=== PATIENT | female | born 1935 | race Caucasian/White ===

== ENCOUNTER 2018-05-22 07:14 | Inpatient (IN) | payer MEDICARE ==
[2018-05-22] MEDS ORDERED: SODIUM CHLORIDE 0.9% 1,000 ML IV STA (07:27)
[2018-05-22] MEDS ORDERED: ONDANSETRON 4 MG/2 ML VIAL IVP STA (07:27)
[2018-05-22] MEDS ORDERED: PANTOPRAZOLE 40 MG/10 ML VIAL IVP STA (07:27)
[2018-05-22 07:43] LABS: Basophils % (A) 0 %; Eosinophils # (A) 0.1 k/uL (0-0.7); Eosinophils % (A) 2 %; HCT 46.3 % (34.0-46.0); HGB 15.5 gm/dL (11.4-16.0); Lymphocytes # (A) 2.1 k/uL (1.0-4.8); Lymphocytes % (A) 22 %; MCH 32.4 pg (25.0-35.0); MCHC 33.5 g/dL (31.0-37.0); MCV 96.8 fL (80.0-100.0); Mean Platelet Volume 7.4; Monocytes # (A) 0.2 k/uL (0-1.0); Monocytes % (A) 2 %; Neutrophils # (A) 7.1 k/uL (1.3-7.7); Neutrophils % (A) 74 %; Platelet Count 238 k/uL (150-450); RBC 4.78 m/uL (3.80-5.40); RDW 13.6 % (11.5-15.5); WBC 9.6 k/uL (3.8-10.6)
[2018-05-22 08:00] LABS: Albumin 3.9 g/dL (3.5-5.0); Calcium 8.7 mg/dL (8.4-10.2); Total Bilirubin 1.1 mg/dL (0.2-1.3); Total Protein 6.2 g/dL (6.3-8.2)
[2018-05-22 08:01] LABS: Potassium 5.2 mmol/L (3.5-5.1)
[2018-05-22 08:03] LABS: INR 1.1 (<1.2); Prothrombin Time 10.8 sec (9.0-12.0)
[2018-05-22 08:07] LABS: Partial Thromboplastin Time 21.6 sec (22.0-30.0)
[2018-05-22 08:34] LABS: Troponin I 0.044 ng/mL (0.000-0.034)
--- NOTE | 2018-05-22 08:52 | XR ---
EXAMINATION TYPE: XR abdomen acute w cxr DATE OF EXAM: 05/22/2018 COMPARISON: NONE HISTORY: Pain TECHNIQUE: Single view of the chest and 2 views of the abdomen are submitted. FINDINGS: Single view of the chest fails demonstrate evidence for acute pulmonary disease. Scattered senescent parenchymal changes noted. There is no evidence for pneumoperitoneum. The bowel gas pattern is unremarkable as there is air throughout nondilated small and large bowel. No sizeable air fluid levels.No mass effects are seen. No unusual calcifications. IMPRESSION: 1. Unremarkable study.
--- NOTE | 2018-05-22 09:10 | ED ---
General Adult HPI - General Chief complaint: Abdominal Pain Stated complaint: ABd Pain Time Seen by Provider: 05/22/18 07:26 Source: patient, EMS, RN notes reviewed, old records reviewed Mode of arrival: EMS Limitations: physical limitation - History of Present Illness Initial comments: This is an 83-year-old female to the ER for evaluation of abdominal pain. Left lower Quadrant. Periumbilical abdominal pain as well as nausea, no vomiting. Patient admits to blood in stool. Patient states she does have history of diverticulitis symptoms were very similar. She has had bowel surgery before, not had this hospital. No fevers - Related Data Home Medications Medication Instructions Recorded Confirmed Aspirin 81 mg PO DAILY 04/15/15 05/22/18 Nitroglycerin Sl Tabs [Nitrostat] 0.4 mg SUBLINGUAL Q5M PRN 04/15/15 05/22/18 amLODIPine BESYLATE [Amlodipine 5 mg PO DAILY 04/15/15 05/22/18 Besylate] Pravastatin Sodium [Pravachol] 40 mg PO DAILY 05/29/15 05/22/18 Cyanocobalamin (Vitamin B-12) 1,000 mcg PO DAILY 05/22/18 05/22/18 [Vitamin B-12] Famotidine [Pepcid] 40 mg PO W/SUPPER 05/22/18 05/22/18 Losartan Potassium 25 mg PO DAILY 05/22/18 05/22/18 Metoprolol Tartrate [Lopressor] 50 mg PO BID 05/22/18 05/22/18 [place]-3 Fatty Acids [[place]-3] 1,000 mg PO DAILY 05/22/18 05/22/18 Vit C/E/Zn/Coppr/Lutein/Zeaxan 1 cap PO BID 05/22/18 05/22/18 [Preservision Areds 2 Softgel] Previous Rx's Medication Instructions Recorded Acetaminophen Tab [Tylenol] 650 mg PO Q6HR PRN #0 tab 04/17/15 FLUoxetine HCL [PROzac] 10 mg PO DAILY cap 04/17/15 Allergies Allergy/AdvReac Type Severity Reaction Status Date / Time adhesive Allergy SKIN Verified 05/29/15 21:12 IRRITATION alcohol Allergy IRREGULAR Verified 05/29/15 21:12 HEART RATE Iodinated Contrast- Oral and Allergy Rash/Hives Verified 05/29/15 21:12 IV Dye [Iodinated Contrast Media - IV Dye] Review of Systems ROS Statement: Those systems with pertinent positive or pertinent negative responses have been documented in the HPI. ROS Other: All systems not noted in ROS Statement are negative. Past Medical History Past Medical History: Atrial Fibrillation, GERD/Reflux, Osteoarthritis (OA), Sleep Apnea/CPAP/BIPAP Additional Past Medical History / Comment(s): Pacemaker defibrillator History of Any Multi-Drug Resistant Organisms: None Reported Past Surgical History: Appendectomy, Bowel Resection, Cholecystectomy, Coronary Bypass/CABG, Heart Catheterization, Hysterectomy, Joint Replacement, Orthopedic Surgery Additional Past Surgical History / Comment(s): CABG-2 VESSEL,THUMB SURGERY,RT HEEL SURGERY,BOWEL RESECTION DUE TO RUPTURED BOWEL,PARTIAL RT KNEE REPLACEMENT, RT SHOULDER REPLACEMENT,OLEG CATARACT SURG.,NASAL SURGERY,BLADDER AND RECTAL SUSP , HEMORRHOIDECTOMIES X2 Past Anesthesia/Blood Transfusion Reactions: Motion Sickness Additional Past Anesthesia/Blood Transfusion Reaction / Comment(s): VERTIGO Past Psychological History: Anxiety Smoking Status: Never smoker Past Alcohol Use History: None Reported Past Drug Use History: None Reported - Past Family History Father Family Medical History: Cancer Additional Family Medical History / Comment(s): COLON Mother Additional Family Medical History / Comment(s): HEART CONDITION General Exam Limitations: physical limitation General appearance: alert, in no apparent distress Head exam: Present: atraumatic, normocephalic, normal inspection Eye exam: Present: normal appearance, PERRL, EOMI. Absent: scleral icterus, conjunctival injection, periorbital swelling ENT exam: Present: normal exam, mucous membranes moist Neck exam: Present: normal inspection. Absent: tenderness, meningismus, lymphadenopathy Respiratory exam: Present: normal lung sounds bilaterally. Absent: respiratory distress, wheezes, rales, rhonchi, stridor Cardiovascular Exam: Present: regular rate, normal rhythm, normal heart sounds. Absent: systolic murmur, diastolic murmur, rubs, gallop, clicks GI/Abdominal exam: Present: soft, normal bowel sounds. Absent: distended, tenderness, guarding, rebound, rigid Extremities exam: Present: normal inspection, full ROM, normal capillary refill. Absent: tenderness, pedal edema, joint swelling, calf tenderness Back exam: Present: normal inspection Neurological exam: Present: alert, oriented X3, CN II-XII intact Psychiatric exam: Present: normal affect, normal mood Skin exam: Present: warm, dry, intact, normal color. Absent: rash Course Vital Signs 05/22/18 05/22/18 05/22/18 07:19 09:01 10:10 Temperature 96.9 F L Pulse Rate 69 60 64 Respiratory 18 18 18 Rate Blood Pressure 138/64 145/63 136/64 O2 Sat by Pulse 96 98 97 Oximetry Medical Decision Making - Medical Decision Making 83 female w colitis, diarrhea, abd pain, and GI bleed, will admit for NPO monitoring of Hgb and IVF - Lab Data Result diagrams: 05/22/18 07:25 05/22/18 07:25 Lab Results 05/22/18 05/22/18 05/22/18 Range/Units 07:25 07:25 07:25 WBC 9.6 (3.8-10.6) k/uL RBC 4.78 (3.80-5.40) m/uL Hgb 15.5 (11.4-16.0) gm/dL Hct 46.3 H (34.0-46.0) % MCV 96.8 (80.0-100.0) fL MCH 32.4 (25.0-35.0) pg MCHC 33.5 (31.0-37.0) g/dL RDW 13.6 (11.5-15.5) % Plt Count 238 (150-450) k/uL Neutrophils % 74 % Lymphocytes % 22 % Monocytes % 2 % Eosinophils % 2 % Basophils % 0 % Neutrophils # 7.1 (1.3-7.7) k/uL Lymphocytes # 2.1 (1.0-4.8) k/uL Monocytes # 0.2 (0-1.0) k/uL Eosinophils # 0.1 (0-0.7) k/uL Basophils # 0.0 (0-0.2) k/uL PT (9.0-12.0) sec INR (<1.2) APTT (22.0-30.0) sec Sodium 138 (137-145) mmol/L Potassium 5.2 H (3.5-5.1) mmol/L Chloride 109 H (98-107) mmol/L Carbon Dioxide 20 L (22-30) mmol/L Anion Gap 9 mmol/L BUN 27 H (7-17) mg/dL Creatinine 0.79 (0.52-1.04) mg/dL Est GFR (CKD-EPI)AfAm 81 (>60 ml/min/1.73 sqM) Est GFR (CKD-EPI)NonAf 70 (>60 ml/min/1.73 sqM) Glucose 207 H (74-99) mg/dL Lactic Ac Sepsis Rflx Plasma Lactic Acid Wang (0.7-2.0) mmol/L Calcium 8.7 (8.4-10.2) mg/dL Total Bilirubin 1.1 (0.2-1.3) mg/dL AST 42 H (14-36) U/L ALT 18 (9-52) U/L Alkaline Phosphatase 34 L (38-126) U/L Total Creatine Kinase 62 (30-135) U/L CK-MB (CK-2) 1.0 (0.0-2.4) ng/mL CK-MB (CK-2) Rel Index 1.6 Troponin I 0.044 H* (0.000-0.034) ng/mL Total Protein 6.2 L (6.3-8.2) g/dL Albumin 3.9 (3.5-5.0) g/dL Amylase 82 (30-110) U/L Lipase 256 (23-300) U/L C. difficile (EIA) Intrp (Negative) 05/22/18 05/22/18 05/22/18 Range/Units 07:25 07:25 08:04 WBC (3.8-10.6) k/uL RBC (3.80-5.40) m/uL Hgb (11.4-16.0) gm/dL Hct (34.0-46.0) % MCV (80.0-100.0) fL MCH (25.0-35.0) pg MCHC (31.0-37.0) g/dL RDW (11.5-15.5) % Plt Count (150-450) k/uL Neutrophils % % Lymphocytes % % Monocytes % % Eosinophils % % Basophils % % Neutrophils # (1.3-7.7) k/uL Lymphocytes # (1.0-4.8) k/uL Monocytes # (0-1.0) k/uL Eosinophils # (0-0.7) k/uL Basophils # (0-0.2) k/uL PT 10.8 (9.0-12.0) sec INR 1.1 (<1.2) APTT 21.6 L (22.0-30.0) sec Sodium (137-145) mmol/L Potassium (3.5-5.1) mmol/L Chloride (98-107) mmol/L Carbon Dioxide (22-30) mmol/L Anion Gap mmol/L BUN (7-17) mg/dL Creatinine (0.52-1.04) mg/dL Est GFR (CKD-EPI)AfAm (>60 ml/min/1.73 sqM) Est GFR (CKD-EPI)NonAf (>60 ml/min/1.73 sqM) Glucose (74-99) mg/dL Lactic Ac Sepsis Rflx Y Plasma Lactic Acid Wang 2.7 H* (0.7-2.0) mmol/L Calcium (8.4-10.2) mg/dL Total Bilirubin (0.2-1.3) mg/dL AST (14-36) U/L ALT (9-52) U/L Alkaline Phosphatase (38-126) U/L Total Creatine Kinase (30-135) U/L CK-MB (CK-2) (0.0-2.4) ng/mL CK-MB (CK-2) Rel Index Troponin I (0.000-0.034) ng/mL Total Protein (6.3-8.2) g/dL Albumin (3.5-5.0) g/dL Amylase (30-110) U/L Lipase (23-300) U/L C. difficile (EIA) Intrp (Negative) 05/22/18 05/22/18 Range/Units 09:46 12:25 WBC (3.8-10.6) k/uL RBC (3.80-5.40) m/uL Hgb (11.4-16.0) gm/dL Hct (34.0-46.0) % MCV (80.0-100.0) fL MCH (25.0-35.0) pg MCHC (31.0-37.0) g/dL RDW (11.5-15.5) % Plt Count (150-450) k/uL Neutrophils % % Lymphocytes % % Monocytes % % Eosinophils % % Basophils % % Neutrophils # (1.3-7.7) k/uL Lymphocytes # (1.0-4.8) k/uL Monocytes # (0-1.0) k/uL Eosinophils # (0-0.7) k/uL Basophils # (0-0.2) k/uL PT (9.0-12.0) sec INR (<1.2) APTT (22.0-30.0) sec Sodium (137-145) mmol/L Potassium (3.5-5.1) mmol/L Chloride (98-107) mmol/L Carbon Dioxide (22-30) mmol/L Anion Gap mmol/L BUN (7-17) mg/dL Creatinine (0.52-1.04) mg/dL Est GFR (CKD-EPI)AfAm (>60 ml/min/1.73 sqM) Est GFR (CKD-EPI)NonAf (>60 ml/min/1.73 sqM) Glucose (74-99) mg/dL Lactic Ac Sepsis Rflx Plasma Lactic Acid Wang 2.4 H* (0.7-2.0) mmol/L Calcium (8.4-10.2) mg/dL Total Bilirubin (0.2-1.3) mg/dL AST (14-36) U/L ALT (9-52) U/L Alkaline Phosphatase (38-126) U/L Total Creatine Kinase (30-135) U/L CK-MB (CK-2) (0.0-2.4) ng/mL CK-MB (CK-2) Rel Index Troponin I (0.000-0.034) ng/mL Total Protein (6.3-8.2) g/dL Albumin (3.5-5.0) g/dL Amylase (30-110) U/L Lipase (23-300) U/L C. difficile (EIA) Intrp Negative (Negative) - Radiology Data Radiology results: report reviewed (CT abd pelvis positive for colitis), image reviewed Disposition Clinical Impression: Abdominal pain, Colitis, GI bleed Disposition: ADMITTED IP TO THIS [facility] Condition: Good Referrals: Rosalino Melgar MD [Primary Care Provider] - 1-2 days
[2018-05-22] MEDS ORDERED: methylPREDNISolone SOD SUCCI 125 MG/2 ML VIAL IV STA (09:45)
[2018-05-22] MEDS ORDERED: FAMOTIDINE 20 MG/2 ML VIAL IV STA (09:45)
[2018-05-22] MEDS ORDERED: diphenhydrAMINE 50 MG/ML 1 ML VIAL IVP STA (09:45)
--- NOTE | 2018-05-22 10:55 | CT ---
EXAMINATION TYPE: CT abdomen pelvis w con DATE OF EXAM: 05/22/2018 HISTORY: Pelvic pain with diarrhea and vomiting CT DLP: 1433.9mGycm Automated Exposure Control for Dose Reduction was Utilized. CONTRAST: CT scan of the abdomen and pelvis is performed without oral but with IV Contrast, patient injected wi th 100 mL of Isovue 370. COMPARISON: Chest x-ray with acute abdominal series earlier today FINDINGS: LUNG BASES: Cardiomegaly is present. Sternal wires are partially imaged. There is partial visualizati on of right-sided pacemaker/defibrillator wires. There is peripheral pleural thickening or atelectati c change laterally in the right lung base. There are some scattered linear scarring and/or atelectasi s seen bilaterally. LIVER/GB: Cholecystectomy clips are seen. PANCREAS: No significant abnormality is seen. SPLEEN: No significant abnormality is seen. ADRENALS: No significant abnormality is seen. KIDNEYS: There is subcentimeter fat dense lesion medially posteriorly lower pole level left kidney co jr image 62 could reflect small lipoma or angiomyolipoma. There is symmetric cortical medullary up take and excretion from both kidneys without evidence of hydronephrosis seen bilaterally. Bladder is poorly distended and thus suboptimally evaluated. BOWEL: Evaluation bowel is suboptimal secondary to lack of enteric contrast. There is poorly distende d stomach which is thus suboptimally evaluated. There is no suspicious dilatation of duodenal sweep. There is no suspicious small bowel dilatation. There is fluid in the right colon. There is moderate wall thickening in the transverse colon. There i s more mild wall thickening and mucosal enhancement of the left colon. There are surgical sutures juana t are seen in the mid sigmoid colon. There is fluid noted in the mid sigmoid colon at this level. The re is mild to moderate wall thickening of the distal sigmoid colon and rectum. UTERUS/ADNEXA: Uterus is surgically absent or markedly atrophic. Scattered pelvic phleboliths are see n. LYMPH NODES: No greater than 1cm abdominal or pelvic lymph nodes are appreciated. OSSEOUS STRUCTURES: There is grade 1 anterolisthesis of L4 on L5. There is vacuum disc phenomenon L4- L5 level with mild disc space narrowing. There is moderate to advanced disc space narrowing L5-S1 lev el with posterior calcified disc herniation and facet arthropathy. Moderate axial joint space loss in both hips is present. OTHER: There is moderate to severe calcified plaque of aorta extending into branch vessels. There is small to moderate-sized umbilical hernia containing fat and tiny mesenteric vessels axial image 54 IMPRESSION: No bowel obstruction is seen. Fluid in colon is consistent with patient's history of diar osmar. Areas of abnormal wall thickening or suspicious for a multifocal colitis, consider infectious a nd inflammatory etiologies.
[2018-05-22] MEDS ORDERED: SODIUM CHLORIDE 0.9% 1,000 ML IV ONE (12:56)
[2018-05-22] MEDS ORDERED: ONDANSETRON 4 MG/2 ML VIAL IVP PRN (12:57)
[2018-05-22] MEDS ORDERED: DICYCLOMINE 10 MG/ML 2 ML AMP IM STA (12:57)
[2018-05-22] MEDS ORDERED: MORPHINE SULFATE 4 MG/ML SYRINGE IVP STA (12:57)
[2018-05-22] MEDS ORDERED: MORPHINE SULFATE 4 MG/ML SYRINGE IVP PRN (12:57)
[2018-05-22 17:16] LABS: Basophils % (A) 0 %; Eosinophils % (A) 0 %; HGB 14.4 gm/dL (11.4-16.0); Lymphocytes # (A) 0.6 k/uL (1.0-4.8); Lymphocytes % (A) 4 %; MCH 31.3 pg (25.0-35.0); MCHC 33.5 g/dL (31.0-37.0); MCV 93.4 fL (80.0-100.0); Mean Platelet Volume 7.1; Monocytes # (A) 0.3 k/uL (0-1.0); Monocytes % (A) 2 %; Neutrophils # (A) 13.7 k/uL (1.3-7.7); Neutrophils % (A) 94 %; Platelet Count 202 k/uL (150-450); RDW 13.2 % (11.5-15.5); WBC 14.6 k/uL (3.8-10.6)
[2018-05-22] MEDS ORDERED: METOCLOPRAMIDE 5 MG/ML 2 ML VIAL IVP SCH (18:00)
[2018-05-22] MEDS ORDERED: NITROGLYCERIN SL TABS 0.4 MG TAB SUBLINGUAL PRN (20:19)
[2018-05-22] MEDS ORDERED: ACETAMINOPHEN TAB 325 MG TAB PO PRN (20:19)
[2018-05-22] MEDS ORDERED: METOCLOPRAMIDE 5 MG/ML 2 ML VIAL IVP PRN (20:24)
[2018-05-22] MEDS: METOPROLOL TARTRATE 50 MG TAB PO SCH (21:03)
[2018-05-22] MEDS: PANTOPRAZOLE 40 MG/10 ML VIAL IVP SCH (21:04)
[2018-05-22 22:15] LABS: Basophils % (A) 0 %; Eosinophils % (A) 0 %; HCT 42.6 % (34.0-46.0); HGB 14.3 gm/dL (11.4-16.0); Lymphocytes # (A) 0.7 k/uL (1.0-4.8); Lymphocytes % (A) 5 %; MCHC 33.5 g/dL (31.0-37.0); MCV 95.6 fL (80.0-100.0); Mean Platelet Volume 6.6; Monocytes # (A) 0.2 k/uL (0-1.0); Monocytes % (A) 1 %; Neutrophils # (A) 12.5 k/uL (1.3-7.7); Neutrophils % (A) 93 %; Platelet Count 209 k/uL (150-450); RBC 4.46 m/uL (3.80-5.40); RDW 13.7 % (11.5-15.5); WBC 13.5 k/uL (3.8-10.6)
--- NOTE | 2018-05-22 23:48 | HP ---
HISTORY AND PHYSICAL CHIEF COMPLAINT: An 83-year-old white female with abdominal pain. HISTORY OF PRESENT ILLNESS: An 83-year-old white female came into the ER for abdominal pain, left lower quadrant, periumbilical abdominal pain, nausea, no vomiting, a large amount of blood in stool this afternoon. She has a history of diverticulitis. She had a colonoscopy 2-3 years ago which apparently showed no masses or polyps. HOME MEDICATIONS: 1. Losartan 25 mg a day. 2. Pravachol 40 mg daily. 3. Pepcid 40 mg daily. 4. Aspirin 81 mg daily. 5. Amlodipine 5 mg daily. 6. Metoprolol 50 mg b.i.d. 7. [place]-3 fatty acids daily. ALLERGIES: ADHESIVE. ALCOHOL, IODINE DYE. REVIEW OF SYSTEMS: Fourteen-point review of systems negative except for mentioned in HPI. PAST MEDICAL HISTORY: Atrial fibrillation, GERD, osteoarthritis, sleep apnea, diverticulitis, has a pacemaker defibrillator surgery, appendectomy, bowel resection, cholecystectomy, CABG, heart catheterization, hysterectomy, joint replacement orthopedic surgery, CABG 2 vessel, thumb surgery, right heel surgery, bowel resection due to a ruptured bowel, partial right knee replacement, right shoulder replacement, bilateral cataract surgery, nasal surgery, bilateral replacement, hemorrhoidectomies x2. SOCIAL HISTORY: No smoking. No alcohol. No illicit drugs. FAMILY HISTORY: Father with cancer of the colon. Mother with heart condition. PHYSICAL EXAM: VITAL SIGNS: Stable, afebrile. CARDIOVASCULAR: S1, S2. LUNGS: Clear. GI: Soft, increased bowel sounds. No mass. PSYCH: Fair mood and affect. NEUROLOGIC: Alert and oriented x3. OPHTHALMOLOGICAL: Pupils equal, round, react to light and accommodation. PSYCH: Fair mood and affect. NEUROLOGIC: Alert and oriented x3. VASCULAR: Normal dorsalis pedis, posterior tib, radial pulses. Temp 96.9, pulse 60- 69, respiratory rate 16-18 blood pressure is 130s-140s over 60s-70s, O2 96%-97% on room air. White count is 9.6, hemoglobin is 15.5. Sodium 138, potassium 5.2, creatinine 0.79. C. diff. is negative. Lactic acid 2.4. ASSESSMENT: 1. Abdominal pain, colitis, gastrointestinal bleed. 2. History of hypothyroidism. 3. Coronary artery disease. 4. Hypertension. 5. Acute abdominal pain. Please see further surgical consult. Monitor signs of bleeding. Possible colonoscopy. Check stool culture. Fluid bolus for elevated lactic acidosis. MMODL / IJN: [id number] /
[2018-05-23] MEDS: SODIUM CHLORIDE 0.9% 1,000 ML IV SCH ×2 (01:26→20:10)
[2018-05-23 03:55] LABS: Appearance,Urine Clear (Clear); Bilirubin,Urine Negative (Negative); Blood,Urine Negative (Negative); Color,Urine Yellow; Glucose,Urine (UA) Negative (Negative); Ketones,Urine Negative (Negative); Leukocyte Esterase,Urine Negative (Negative); Mucus,Urine Rare /hpf; Nitrite,Urine Negative (Negative); PH, Urine 5.5 (5.0-8.0); Protein,Urine 1+ (Negative); RBC,Urine 1 /hpf (0-5); Specific Gravity,Urine 1.032 (1.001-1.035); Squamous Epithelial Cell,Urine 1 /hpf (0-4); Urobilinogen,Urine <2.0 mg/dL (<2.0); WBC,Urine 3 /hpf (0-5)
[2018-05-23 03:57] LABS: Basophils % (A) 0 %; Eosinophils # (A) 0.1 k/uL (0-0.7); Eosinophils % (A) 1 %; HCT 39.2 % (34.0-46.0); HGB 12.8 gm/dL (11.4-16.0); Lymphocytes # (A) 0.6 k/uL (1.0-4.8); Lymphocytes % (A) 5 %; MCH 30.9 pg (25.0-35.0); MCHC 32.6 g/dL (31.0-37.0); MCV 94.9 fL (80.0-100.0); Mean Platelet Volume 6.7; Monocytes # (A) 0.4 k/uL (0-1.0); Monocytes % (A) 3 %; Neutrophils # (A) 11.4 k/uL (1.3-7.7); Neutrophils % (A) 91 %; Platelet Count 197 k/uL (150-450); RBC 4.13 m/uL (3.80-5.40); RDW 13.7 % (11.5-15.5); WBC 12.5 k/uL (3.8-10.6)
[2018-05-23 03:59] LABS: ALT 31 U/L (9-52); AST 24 U/L (14-36); Albumin 3.7 g/dL (3.5-5.0); Alkaline Phosphatase 44 U/L (38-126); Anion Gap 9 mmol/L; Blood Urea Nitrogen 23 mg/dL (7-17); Calcium 8.7 mg/dL (8.4-10.2); Carbon Dioxide 19 mmol/L (22-30); Chloride 112 mmol/L (98-107); Glucose 153 mg/dL (74-99); Potassium 4.2 mmol/L (3.5-5.1); Sodium 140 mmol/L (137-145); Total Bilirubin 0.5 mg/dL (0.2-1.3); Total Protein 5.9 g/dL (6.3-8.2)
[2018-05-23] MEDS: PANTOPRAZOLE 40 MG/10 ML VIAL IVP SCH ×2 (07:55→20:11)
[2018-05-23] MEDS: PRAVASTATIN SODIUM 40 MG TAB PO SCH (07:55)
[2018-05-23] MEDS: CYANOCOBALAMIN 500 MCG TAB PO SCH (07:55)
[2018-05-23] MEDS: FLUoxetine HCL 10 MG CAP PO SCH (07:56)
[2018-05-23] MEDS: METOPROLOL TARTRATE 50 MG TAB PO SCH ×2 (07:56→20:10)
[2018-05-23] MEDS: amLODIPine 5 MG TAB PO SCH (07:56)
[2018-05-23] MEDS: LOSARTAN 25 MG TAB PO SCH (07:56)
[2018-05-23 09:00] LABS: Basophils % (A) 0 %; Eosinophils % (A) 0 %; HCT 37.9 % (34.0-46.0); HGB 12.6 gm/dL (11.4-16.0); Lymphocytes # (A) 0.8 k/uL (1.0-4.8); Lymphocytes % (A) 6 %; MCH 31.8 pg (25.0-35.0); MCHC 33.4 g/dL (31.0-37.0); MCV 95.4 fL (80.0-100.0); Mean Platelet Volume 6.8; Monocytes # (A) 0.5 k/uL (0-1.0); Monocytes % (A) 4 %; Neutrophils % (A) 90 %; Platelet Count 190 k/uL (150-450); RBC 3.97 m/uL (3.80-5.40); WBC 13.4 k/uL (3.8-10.6)
[2018-05-23] MEDS ORDERED: FAMOTIDINE 20 MG TAB PO SCH (17:30)
--- NOTE | 2018-05-23 19:20 | P.GSCN ---
History of Present Illness Consult date: 05/23/18 History of present illness: Patient presents with rectal bleeding that started yesterday. She reported generalized abdominal pain. Her last colonoscopy was 3 years ago in [place]. 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 No exposure to sick contacts or recent antibiotics. CT consistent with colitis. She reports intolerance to large volume bowel preps and is still relatively weak. Past Medical History Past Medical History: Atrial Fibrillation, GERD/Reflux, Hyperlipidemia, Hypertension, Osteoarthritis (OA), Pneumonia, Sleep Apnea/CPAP/BIPAP Additional Past Medical History / Comment(s): hx cardiomyopathy/bradycardia/chf had Pacemaker defibrillator implanted, kidneys stones(passed on own), past ulcer in her 40's. ton-no cpap used, vertigo, past ruptured bowel(sx), past broken nose/deviated spetum(sx) History of Any Multi-Drug Resistant Organisms: None Reported Past Surgical History: AICD, Appendectomy, Bowel Resection, Cholecystectomy, Coronary Bypass/CABG, Heart Catheterization, Hysterectomy, Joint Replacement, Orthopedic Surgery, Pacemaker Additional Past Surgical History / Comment(s): CABG-2 VESSEL,THUMB SURGERY,RT HEEL SPUR REMOVED,BOWEL RESECTION DUE TO RUPTURED BOWEL,PARTIAL RT KNEE REPLACEMENT,RT SHOULDER REPLACEMENT,OLEG CATARACT-LENS IMPLANTS, NASAL SURGERY, BLADDER AND RECTAL SUSP, HEMORRHOIDECTOMIES X2 Past Anesthesia/Blood Transfusion Reactions: Motion Sickness Additional Past Anesthesia/Blood Transfusion Reaction / Comm: VERTIGO, CLAUSTERPHOBIA. DIFFICULTY WAKING AFTER AA Type of Cardiac Device: Permanent Pacemaker, AICD Device Placement Date:: UNK Smoking Status: Never smoker - Past Family History Father Family Medical History: Cancer Additional Family Medical History / Comment(s): COLON Mother Additional Family Medical History / Comment(s): HEART CONDITION Medications and Allergies Home Medications Medication Instructions Recorded Confirmed Type Aspirin 81 mg PO DAILY 04/15/15 05/22/18 History Nitroglycerin Sl Tabs [Nitrostat] 0.4 mg SUBLINGUAL Q5M PRN 04/15/15 05/22/18 History amLODIPine BESYLATE [Amlodipine 5 mg PO DAILY 04/15/15 05/22/18 History Besylate] Acetaminophen Tab [Tylenol] 650 mg PO Q6HR PRN #0 tab 04/17/15 05/22/18 Rx FLUoxetine HCL [PROzac] 10 mg PO DAILY cap 04/17/15 05/22/18 Rx Pravastatin Sodium [Pravachol] 40 mg PO DAILY 05/29/15 05/22/18 History Cyanocobalamin (Vitamin B-12) 1,000 mcg PO DAILY 05/22/18 05/22/18 History [Vitamin B-12] Famotidine [Pepcid] 40 mg PO W/SUPPER 05/22/18 05/22/18 History Losartan Potassium 25 mg PO DAILY 05/22/18 05/22/18 History Metoprolol Tartrate [Lopressor] 50 mg PO BID 05/22/18 05/22/18 History [place]-3 Fatty Acids [[place]-3] 1,000 mg PO DAILY 05/22/18 05/22/18 History Vit C/E/Zn/Coppr/Lutein/Zeaxan 1 cap PO BID 05/22/18 05/22/18 History [Preservision Areds 2 Softgel] Allergies Allergy/AdvReac Type Severity Reaction Status Date / Time adhesive Allergy SKIN Verified 05/29/15 21:12 IRRITATION alcohol Allergy IRREGULAR Verified 05/29/15 21:12 HEART RATE Iodinated Contrast- Oral and Allergy Rash/Hives Verified 05/29/15 21:12 IV Dye [Iodinated Contrast Media - IV Dye] Surgical - Exam Vital Signs Temp Pulse Resp BP Pulse Ox 96.9 F L 69 18 138/64 96 05/22/18 07:19 05/22/18 07:19 05/22/18 07:19 05/22/18 07:19 05/22/18 07:19 ABDOMEN: No peritonitis. Mild generalized tenderness. Soft. Minimal distention. Results - Labs 05/23/18 08:19 05/23/18 03:34 Abnormal Lab Results - Last 24 Hours (Table) 05/22/18 05/22/18 05/23/18 Range/Units 21:15 22:04 03:34 WBC 13.5 H 12.5 H (3.8-10.6) k/uL Neutrophils # 12.5 H 11.4 H (1.3-7.7) k/uL Lymphocytes # 0.7 L 0.6 L (1.0-4.8) k/uL Chloride (98-107) mmol/L Carbon Dioxide (22-30) mmol/L BUN (7-17) mg/dL Glucose (74-99) mg/dL Total Protein (6.3-8.2) g/dL Urine Protein 1+ H (Negative) Urine Mucus Rare H (None) /hpf 05/23/18 05/23/18 Range/Units 03:34 08:19 WBC 13.4 H (3.8-10.6) k/uL Neutrophils # 12.0 H (1.3-7.7) k/uL Lymphocytes # 0.8 L (1.0-4.8) k/uL Chloride 112 H (98-107) mmol/L Carbon Dioxide 19 L (22-30) mmol/L BUN 23 H (7-17) mg/dL Glucose 153 H (74-99) mg/dL Total Protein 5.9 L (6.3-8.2) g/dL Urine Protein (Negative) Urine Mucus (None) /hpf Microbiology - Last 24 Hours (Table) 05/22/18 22:04 Urine Culture - Preliminary Urine,Voided Diabetes panel 05/23/18 Range/Units 03:34 Sodium 140 (137-145) mmol/L Potassium 4.2 (3.5-5.1) mmol/L Chloride 112 H (98-107) mmol/L Carbon Dioxide 19 L (22-30) mmol/L BUN 23 H (7-17) mg/dL Creatinine 0.60 (0.52-1.04) mg/dL Glucose 153 H (74-99) mg/dL Calcium 8.7 (8.4-10.2) mg/dL AST 24 (14-36) U/L ALT 31 (9-52) U/L Alkaline Phosphatase 44 (38-126) U/L Total Protein 5.9 L (6.3-8.2) g/dL Albumin 3.7 (3.5-5.0) g/dL Calcium panel 05/23/18 Range/Units 03:34 Calcium 8.7 (8.4-10.2) mg/dL Albumin 3.7 (3.5-5.0) g/dL Pituitary panel 05/23/18 Range/Units 03:34 Sodium 140 (137-145) mmol/L Potassium 4.2 (3.5-5.1) mmol/L Chloride 112 H (98-107) mmol/L Carbon Dioxide 19 L (22-30) mmol/L BUN 23 H (7-17) mg/dL Creatinine 0.60 (0.52-1.04) mg/dL Glucose 153 H (74-99) mg/dL Calcium 8.7 (8.4-10.2) mg/dL Adrenal panel 05/23/18 Range/Units 03:34 Sodium 140 (137-145) mmol/L Potassium 4.2 (3.5-5.1) mmol/L Chloride 112 H (98-107) mmol/L Carbon Dioxide 19 L (22-30) mmol/L BUN 23 H (7-17) mg/dL Creatinine 0.60 (0.52-1.04) mg/dL Glucose 153 H (74-99) mg/dL Calcium 8.7 (8.4-10.2) mg/dL Total Bilirubin 0.5 (0.2-1.3) mg/dL AST 24 (14-36) U/L ALT 31 (9-52) U/L Alkaline Phosphatase 44 (38-126) U/L Total Protein 5.9 L (6.3-8.2) g/dL Albumin 3.7 (3.5-5.0) g/dL - Imaging CT scan - abdomen: report reviewed, image reviewed CT scan - pelvis: report reviewed, image reviewed US - abdomen: image reviewed (Colitis without bowel obstruction or perforation.) Assessment and Plan (1) Colitis Current Visit: Yes Status: Acute Code(s): K52.9 - NONINFECTIVE GASTROENTERITIS AND COLITIS, UNSPECIFIED SNOMED Code(s): 51787883 (2) GI bleed Current Visit: Yes Status: Acute Code(s): K92.2 - GASTROINTESTINAL HEMORRHAGE, UNSPECIFIED SNOMED Code(s): 62732804 Plan: 1. Recommend treatment for ischemic colitis with her surgical history. 2. IV antibiotics for now. 3. As she is relatively weak and dehydrated, recommend holding off inpatient colonoscopy. Patient also reports intolerance to GI prep. 4. Low residue diet.
[2018-05-23 22:11] LABS: Basophils % (A) 0 %; Eosinophils # (A) 0.1 k/uL (0-0.7); Eosinophils % (A) 1 %; HCT 39.3 % (34.0-46.0); HGB 12.6 gm/dL (11.4-16.0); Lymphocytes # (A) 1.6 k/uL (1.0-4.8); Lymphocytes % (A) 11 %; MCH 30.8 pg (25.0-35.0); MCHC 32.1 g/dL (31.0-37.0); MCV 95.8 fL (80.0-100.0); Monocytes # (A) 0.8 k/uL (0-1.0); Monocytes % (A) 5 %; Neutrophils # (A) 12.2 k/uL (1.3-7.7); Neutrophils % (A) 82 %; Platelet Count 187 k/uL (150-450); RBC 4.11 m/uL (3.80-5.40); RDW 13.7 % (11.5-15.5)
--- NOTE | 2018-05-23 22:13 | PN ---
PROGRESS NOTE SUBJECTIVE: 83-year-old white female with colitis, GI bleeding, hypertension, GERD. LABS: Hemoglobin dropped down to 12.6 from 14.4. She has had no active bleeding overnight. Cardiovascular S1-S2. Lungs clear. GI is decreased bowel sounds x4. Hematology: Negative Homans. Surgical consult with Dr. Melendez . IMPRESSION: 1. Colitis, noninfected. 2. Gastroenteritis and colitis. 3. Gastrointestinal bleeding. Recommend treatment for ischemic colitis. IV antibiotics for now. She wants to hold off inpatient colonoscopy. IV antibiotics for now. Please see further orders for consultation. MMODL / IJN: [id number] /
[2018-05-24] MEDS ORDERED: methylPREDNISolone SOD SUCCI 40 MG/ML 1 ML VIAL ONE
[2018-05-24] MEDS: SODIUM CHLORIDE 0.9% 1,000 ML IV SCH ×2 (04:54→17:11)
[2018-05-24] MEDS: methylPREDNISolone SOD SUCCI 40 MG/ML 1 ML VIAL IV SCH ×4 (04:54→22:59)
[2018-05-24 06:21] LABS: Glucose,Whole Blood 145 mg/dL (75-99)
[2018-05-24] MEDS: INSULIN ASPART 100 UNIT/ML 1 ML 10 ML VIAL SQ SCH ×4 (06:24→22:28)
[2018-05-24 06:28] LABS: Basophils % (A) 0 %; Eosinophils % (A) 0 %; HCT 38.9 % (34.0-46.0); HGB 12.8 gm/dL (11.4-16.0); Lymphocytes # (A) 0.6 k/uL (1.0-4.8); Lymphocytes % (A) 5 %; MCH 31.3 pg (25.0-35.0); MCHC 32.8 g/dL (31.0-37.0); MCV 95.3 fL (80.0-100.0); Mean Platelet Volume 6.7; Monocytes # (A) 0.3 k/uL (0-1.0); Monocytes % (A) 2 %; Neutrophils # (A) 12.2 k/uL (1.3-7.7); Neutrophils % (A) 93 %; Platelet Count 181 k/uL (150-450); RBC 4.08 m/uL (3.80-5.40); RDW 13.6 % (11.5-15.5); WBC 13.2 k/uL (3.8-10.6)
[2018-05-24 06:45] LABS: ALT 36 U/L (9-52); AST 45 U/L (14-36); Albumin 3.9 g/dL (3.5-5.0); Alkaline Phosphatase 53 U/L (38-126); Anion Gap 8 mmol/L; Blood Urea Nitrogen 16 mg/dL (7-17); Calcium 8.6 mg/dL (8.4-10.2); Carbon Dioxide 24 mmol/L (22-30); Chloride 106 mmol/L (98-107); Glucose 144 mg/dL (74-99); Potassium 4.5 mmol/L (3.5-5.1); Sodium 138 mmol/L (137-145); Total Bilirubin 0.6 mg/dL (0.2-1.3)
[2018-05-24] MEDS: METOPROLOL TARTRATE 50 MG TAB PO SCH ×2 (10:41→22:59)
[2018-05-24] MEDS: amLODIPine 5 MG TAB PO SCH (10:41)
[2018-05-24] MEDS: FLUoxetine HCL 10 MG CAP PO SCH (10:42)
[2018-05-24] MEDS: PRAVASTATIN SODIUM 40 MG TAB PO SCH (10:42)
[2018-05-24] MEDS: CYANOCOBALAMIN 500 MCG TAB PO SCH (10:42)
[2018-05-24] MEDS: LOSARTAN 25 MG TAB PO SCH (10:42)
[2018-05-24] MEDS: PANTOPRAZOLE 40 MG/10 ML VIAL IVP SCH ×2 (10:42→22:59)
[2018-05-24 11:56] LABS: Glucose,Whole Blood 136 mg/dL (75-99)
[2018-05-24 15:15] LABS: Hemoglobin A1C 5.8 % (4.0-6.0)
[2018-05-24 17:28] LABS: Glucose,Whole Blood 138 mg/dL (75-99)
[2018-05-24 20:14] LABS: Glucose,Whole Blood 158 mg/dL (75-99)
--- NOTE | 2018-05-25 00:05 | PN ---
PROGRESS NOTE SUBJECTIVE: An 83-year-old white female on IV Solu-Medrol for colitis. Her bowel infection is much improved. Will possibly discharge her home tomorrow, as there is no further sign of any bleeding. Hemoglobin is stable at 12.8. CARDIOVASCULAR: S1, S2. LUNGS: Clear. GI: Soft. ASSESSMENT: 1. Acute colitis. 2. Abdominal pain. 3. Gastroenteritis. Possible discharge home tomorrow, as no further bleeding has been seen. MMODL / IJN: [id number] /
[2018-05-25] MEDS: SODIUM CHLORIDE 0.9% 1,000 ML IV SCH ×2 (02:52→21:15)
[2018-05-25 06:42] LABS: Basophils % (A) 0 %; Eosinophils % (A) 0 %; HCT 37.1 % (34.0-46.0); HGB 12.4 gm/dL (11.4-16.0); Lymphocytes # (A) 0.5 k/uL (1.0-4.8); Lymphocytes % (A) 6 %; MCH 31.2 pg (25.0-35.0); MCHC 33.4 g/dL (31.0-37.0); MCV 93.4 fL (80.0-100.0); Mean Platelet Volume 6.8; Monocytes # (A) 0.3 k/uL (0-1.0); Monocytes % (A) 4 %; Neutrophils # (A) 7.8 k/uL (1.3-7.7); Neutrophils % (A) 90 %; Platelet Count 146 k/uL (150-450); RBC 3.97 m/uL (3.80-5.40); RDW 13.4 % (11.5-15.5); WBC 8.7 k/uL (3.8-10.6)
[2018-05-25 06:56] LABS: ALT 43 U/L (9-52); AST 38 U/L (14-36); Albumin 3.5 g/dL (3.5-5.0); Alkaline Phosphatase 45 U/L (38-126); Anion Gap 6 mmol/L; Blood Urea Nitrogen 12 mg/dL (7-17); Calcium 8.5 mg/dL (8.4-10.2); Carbon Dioxide 25 mmol/L (22-30); Chloride 108 mmol/L (98-107); Glucose 147 mg/dL (74-99); Sodium 139 mmol/L (137-145); Total Bilirubin 0.6 mg/dL (0.2-1.3); Total Protein 5.6 g/dL (6.3-8.2)
[2018-05-25 07:29] LABS: Glucose,Whole Blood 142 mg/dL (75-99)
[2018-05-25] MEDS: INSULIN ASPART 100 UNIT/ML 1 ML 10 ML VIAL SQ SCH ×4 (09:23→21:10)
[2018-05-25] MEDS: METOPROLOL TARTRATE 50 MG TAB PO SCH ×2 (09:31→21:16)
[2018-05-25] MEDS: FLUoxetine HCL 10 MG CAP PO SCH (09:31)
[2018-05-25] MEDS: CYANOCOBALAMIN 500 MCG TAB PO SCH (09:31)
[2018-05-25] MEDS: methylPREDNISolone SOD SUCCI 40 MG/ML 1 ML VIAL IV SCH ×2 (09:31→15:26)
[2018-05-25] MEDS: amLODIPine 5 MG TAB PO SCH (09:31)
[2018-05-25] MEDS: LOSARTAN 25 MG TAB PO SCH (09:31)
[2018-05-25] MEDS: PRAVASTATIN SODIUM 40 MG TAB PO SCH (09:32)
[2018-05-25] MEDS: PANTOPRAZOLE 40 MG/10 ML VIAL IVP SCH ×2 (09:32→21:10)
--- NOTE | 2018-05-25 10:14 | P.PN ---
Progress Note - Text Progress Note Date: 05/25/18 The patient feels much better. She isn't is being discharged home today. She denies any abdominal pain. On exam her vital signs are stable. Rather soft. Resolving colitis. Patient was discharged home. She'll follow myself in one week.
[2018-05-25 12:09] LABS: Glucose,Whole Blood 210 mg/dL (75-99)
--- NOTE | 2018-05-25 16:42 | PN ---
PROGRESS NOTE SUBJECTIVE: 83-year-old white female who was admitted with colitis and GI bleeding. She has had no further bleeding. Hemoglobin stable at 12.4. Diet will be advanced. Possible discharge next 24 to 48 hours. CARDIOVASCULAR: S1, S2. LUNGS: Clear. GI: Soft, increased bowel sounds. HEMATOLOGY: Negative Homans. She will follow up in office. She can go home today. MMODL / IJN: [id number] /
[2018-05-25 16:59] LABS: Glucose,Whole Blood 121 mg/dL (75-99)
[2018-05-25 19:58] LABS: Glucose,Whole Blood 212 mg/dL (75-99)
[2018-05-26] MEDS: methylPREDNISolone SOD SUCCI 40 MG/ML 1 ML VIAL IV SCH ×2 (00:06→07:51)
[2018-05-26 06:41] LABS: Glucose,Whole Blood 153 mg/dL (75-99)
[2018-05-26 07:12] VITALS: BP 164/68; PULSE 62; RESP 18; TEMP 98.6
[2018-05-26] MEDS: INSULIN ASPART 100 UNIT/ML 1 ML 10 ML VIAL SQ SCH (07:46)
[2018-05-26] MEDS: PANTOPRAZOLE 40 MG/10 ML VIAL IVP SCH (07:48)
[2018-05-26] MEDS: PRAVASTATIN SODIUM 40 MG TAB PO SCH (07:49)
[2018-05-26] MEDS: METOPROLOL TARTRATE 50 MG TAB PO SCH (07:49)
[2018-05-26] MEDS: amLODIPine 5 MG TAB PO SCH (07:49)
[2018-05-26] MEDS: FLUoxetine HCL 10 MG CAP PO SCH (07:49)
[2018-05-26] MEDS: SODIUM CHLORIDE 0.9% 1,000 ML IV SCH (07:51)
[2018-05-26] MEDS: CYANOCOBALAMIN 500 MCG TAB PO SCH (07:52)
[2018-05-26] MEDS: LOSARTAN 25 MG TAB PO SCH (07:53)
--- NOTE | 2018-05-26 09:20 | P.PN ---
Progress Note - Text Progress Note Date: 05/26/18 Patient's resting comfortably in bed. She states she feels well wishes to go home. On exam her vital signs are stable. Her abdomen soft. Patient will be most likely discharged home today. She'll follow-up in one week. We will plan for outpatient endoscopy.
== END 2018-05-26 11:59 | disposition home or self-care (01) | DRG 392 ==
LOC: EC 07:14 → 6SEL 12:56 → OBSVTOIN 05-23 17:07 → 3SUR 05-24 19:51
PROVIDERS: ADMIT Family Medicine; ATTEND Family Medicine
DX: K52.9 Noninfective gastroenteritis and colitis, unspecified (principal); K55.9 Vascular disorder of intestine, unspecified; E87.2 Acidosis; I42.9 Cardiomyopathy, unspecified; E03.9 Hypothyroidism, unspecified; E78.5 Hyperlipidemia, unspecified; G47.33 Obstructive sleep apnea (adult) (pediatric); I11.0 Hypertensive heart disease with heart failure; I25.10 Atherosclerotic heart disease of native coronary artery without angina pectoris; I48.91 Unspecified atrial fibrillation; I50.9 Heart failure, unspecified; K21.9 Gastro-esophageal reflux disease without esophagitis; Z79.82 Long term (current) use of aspirin; Z79.899 Other long term (current) drug therapy; Z80.0 Family history of malignant neoplasm of digestive organs; Z90.710 Acquired absence of both cervix and uterus; Z95.0 Presence of cardiac pacemaker; Z95.1 Presence of aortocoronary bypass graft; Z98.42 Cataract extraction status, left eye; Z98.41 Cataract extraction status, right eye; Z96.1 Presence of intraocular lens; Z96.611 Presence of right artificial shoulder joint; Z96.651 Presence of right artificial knee joint; Z88.8 Allergy status to other drugs, medicaments and biological substances; Z91.041 Radiographic dye allergy status; Z90.49 Acquired absence of other specified parts of digestive tract
CPT/HCPCS: 36415; 74022; 74177; 80053; 81001; 82150; 82550; 82553; 83036; 83605; 83690; 84484; 85025; 85610; 85730; 87045; 87046; 87086; 87324; 96361; 96372; 96374; 96375; 99285

== ENCOUNTER 2018-05-30 15:30 | Emergency (ER) | payer MEDICARE ==
[2018-05-30] MEDS ORDERED: SODIUM CHLORIDE 0.9% 1,000 ML IV STA (15:35)
[2018-05-30 15:37] VITALS: RESP 18; TEMP 97.9
[2018-05-30] MEDS ORDERED: methylPREDNISolone SOD SUCCI 125 MG/2 ML VIAL IV STA (16:04)
[2018-05-30 16:39] LABS: Basophils % (A) 0 %; Eosinophils # (A) 0.1 k/uL (0-0.7); Eosinophils % (A) 1 %; HCT 47.6 % (34.0-46.0); Lymphocytes # (A) 0.8 k/uL (1.0-4.8); Lymphocytes % (A) 4 %; MCHC 32.9 g/dL (31.0-37.0); Mean Platelet Volume 6.9; Monocytes # (A) 0.6 k/uL (0-1.0); Monocytes % (A) 3 %; Neutrophils # (A) 17.1 k/uL (1.3-7.7); Neutrophils % (A) 92 %; Platelet Count 214 k/uL (150-450); RBC 5.06 m/uL (3.80-5.40); RDW 13.5 % (11.5-15.5); WBC 18.7 k/uL (3.8-10.6)
[2018-05-30 16:44] LABS: HGB 15.7 gm/dL (11.4-16.0)
[2018-05-30 16:47] LABS: Albumin 3.2 g/dL (3.5-5.0); Calcium 8.8 mg/dL (8.4-10.2); Potassium 3.8 mmol/L (3.5-5.1); Total Bilirubin 0.5 mg/dL (0.2-1.3); Total Protein 5.3 g/dL (6.3-8.2)
--- NOTE | 2018-05-30 16:49 | XR ---
EXAMINATION: XR chest 2V DATE AND TIME: 05/30/2018 4:34 PM ORDERING PROVIDER: Kiran Montgomery CLINICAL INDICATION: difficulty breathing TECHNIQUE: PA and lateral COMPARISON: 05/29/2015 DESCRIPTION: Cardiac pacemaker and sternal sutures noted. Mildly enlarged cardiac silhouette, unchang ed. The lungs are clear. The pleural spaces are negative. The mediastinal and pleural silhouettes are unremarkable. The skeletal structures are intact without focal findings. The soft tissues are unremarkable. IMPRESSION: NO ACUTE PROCESS.
[2018-05-30 17:05] LABS: INR 1.2 (<1.2); Partial Thromboplastin Time 20.2 sec (22.0-30.0); Prothrombin Time 11.4 sec (9.0-12.0)
[2018-05-30 17:07] LABS: Creatine Kinase MB 1.6 ng/mL (0.0-2.4); Troponin I 0.018 ng/mL (0.000-0.034)
[2018-05-30 17:08] LABS: D-Dimer 4.43 mg/L FEU (<0.60)
--- NOTE | 2018-05-30 17:43 | ED ---
General Adult HPI - General Chief complaint: Allergic Reaction Stated complaint: allergic reaction Time Seen by Provider: 05/30/18 15:31 Source: patient, EMS, RN notes reviewed Mode of arrival: EMS Limitations: no limitations - History of Present Illness Initial comments: 83-year-old female presents to the emergency department by EMS for a chief complaint of possible ALLERGIC reaction. Patient states she drank a smoothie and began to feel itchy. Patient then states that for about an hour and a half she had chest pressure with shortness of breath and diaphoresis. Patient states she then called an ambulance and was given Benadryl which makes her feel better. In the emergency department patient admits to mild shortness of breath at this time though it has improved greatly. Patient denies any chest pain at this time. Patient was recently discharged from the hospital for ulcerative colitis. patient denies any abdominal pain and states it has completely resolved since her stay in the hospital. Patient has no other complaints at this time including shortness of breath, chest pain, abdominal pain, nausea or vomiting, headache, or visual changes. - Related Data Home Medications Medication Instructions Recorded Confirmed Aspirin 81 mg PO DAILY 04/15/15 05/30/18 Nitroglycerin Sl Tabs [Nitrostat] 0.4 mg SUBLINGUAL Q5M PRN 04/15/15 05/30/18 amLODIPine BESYLATE [Amlodipine 5 mg PO DAILY 04/15/15 05/30/18 Besylate] Pravastatin Sodium [Pravachol] 40 mg PO DAILY 05/29/15 05/30/18 Cyanocobalamin (Vitamin B-12) 1,000 mcg PO DAILY 05/22/18 05/30/18 [Vitamin B-12] Losartan Potassium 25 mg PO DAILY 05/22/18 05/30/18 Metoprolol Tartrate [Lopressor] 50 mg PO BID 05/22/18 05/30/18 Sartell-3 Fatty Acids [Sartell-3] 1,000 mg PO DAILY 05/22/18 05/30/18 Vit C/E/Zn/Coppr/Lutein/Zeaxan 1 cap PO BID 05/22/18 05/30/18 [Preservision Areds 2 Softgel] Previous Rx's Medication Instructions Recorded Acetaminophen Tab [Tylenol] 650 mg PO Q6HR PRN #0 tab 04/17/15 Pantoprazole Sodium [Protonix] 40 mg PO DAILY 30 Days #30 05/26/18 tablet. Allergies Allergy/AdvReac Type Severity Reaction Status Date / Time adhesive Allergy SKIN Verified 05/30/18 15:37 IRRITATION alcohol Allergy IRREGULAR Verified 05/30/18 15:37 HEART RATE Iodinated Contrast- Oral and Allergy Rash/Hives Verified 05/30/18 15:37 IV Dye [Iodinated Contrast Media - IV Dye] Review of Systems ROS Statement: Those systems with pertinent positive or pertinent negative responses have been documented in the HPI. ROS Other: All systems not noted in ROS Statement are negative. Past Medical History Past Medical History: Atrial Fibrillation, GERD/Reflux, Hyperlipidemia, Hypertension, Osteoarthritis (OA), Pneumonia, Sleep Apnea/CPAP/BIPAP Additional Past Medical History / Comment(s): hx cardiomyopathy/bradycardia/chf had Pacemaker defibrillator implanted, kidneys stones(passed on own), past ulcer in her 40's. ton-no cpap used, vertigo, past ruptured bowel(sx), past broken nose/deviated spetum(sx) History of Any Multi-Drug Resistant Organisms: None Reported Past Surgical History: AICD, Appendectomy, Bowel Resection, Cholecystectomy, Coronary Bypass/CABG, Heart Catheterization, Hysterectomy, Joint Replacement, Orthopedic Surgery, Pacemaker Additional Past Surgical History / Comment(s): CABG-2 VESSEL,THUMB SURGERY,RT HEEL SPUR REMOVED,BOWEL RESECTION DUE TO RUPTURED BOWEL,PARTIAL RT KNEE REPLACEMENT,RT SHOULDER REPLACEMENT,OLEG CATARACT-LENS IMPLANTS, NASAL SURGERY, BLADDER AND RECTAL SUSP, HEMORRHOIDECTOMIES X2 Past Anesthesia/Blood Transfusion Reactions: Motion Sickness Additional Past Anesthesia/Blood Transfusion Reaction / Comment(s): VERTIGO, CLAUSTERPHOBIA. DIFFICULTY WAKING AFTER AA Type of Cardiac Device: Permanent Pacemaker, AICD Device Placement Date:: UNK Past Psychological History: Anxiety Smoking Status: Never smoker Past Alcohol Use History: None Reported Past Drug Use History: None Reported - Past Family History Father Family Medical History: Cancer Additional Family Medical History / Comment(s): COLON Mother Additional Family Medical History / Comment(s): HEART CONDITION General Exam Limitations: no limitations General appearance: alert, in no apparent distress Head exam: Present: atraumatic Eye exam: Present: normal appearance, PERRL, EOMI. Absent: scleral icterus, conjunctival injection, periorbital swelling ENT exam: Present: normal exam, mucous membranes moist Neck exam: Present: normal inspection, full ROM. Absent: tenderness, meningismus, lymphadenopathy Respiratory exam: Present: normal lung sounds bilaterally. Absent: respiratory distress, wheezes, rales, rhonchi, stridor Cardiovascular Exam: Present: regular rate, normal rhythm, normal heart sounds. Absent: systolic murmur, diastolic murmur, rubs, gallop, clicks GI/Abdominal exam: Present: soft, normal bowel sounds. Absent: distended, tenderness, guarding, rebound, rigid Course Vital Signs 05/30/18 05/30/18 05/30/18 15:34 15:37 16:36 Temperature 97.9 F Pulse Rate 75 68 Respiratory 18 18 18 Rate Blood Pressure 93/56 119/61 O2 Sat by Pulse 97 98 Oximetry 05/30/18 05/30/18 17:02 18:58 Temperature Pulse Rate 67 65 Respiratory 18 18 Rate Blood Pressure 117/47 137/64 O2 Sat by Pulse 99 93 L Oximetry Medical Decision Making - Medical Decision Making 83-year-old female presents to the emergency department for a chief complaint of ALLERGIC reaction. Patient states it started out as itching and then progressed to shortness of breath, chest pain, and diaphoresis for about 1.5 hours. Patient does have a history of double bypass and pacemaker. Patient was also recently discharged from the hospital for ulcerative colitis which she states has completely resolved. Patient states that she was given Benadryl she did feel significantly better. Was still having shortness of breath on presentation. Patient's blood pressure was 93/56 on presentation. After fluids blood pressure increased to 119/61. On exam, lungs are clear and hear rate regular. No abdominal tenderness. CBC shows a white count of 18.7 which is likely elevated due to patient's regimen of steroids at home for the healing ulcerative colitis. Glucose 209. BUN 39. Creat 0.9. Patient was given a liter of fluids. CT negative for pulmonary embolism. No acute radiographic process. Patient was also given Solu-Medrol in the emergency department. Patient is feeling much better. She is wanting to go home. Patient denies any chest or abdominal pain. No shortness of breath. Patient educated on return precautions. - Lab Data Result diagrams: 05/30/18 16:23 05/30/18 16:23 Lab Results 07/26/18 07/26/18 07/26/18 Range/Units 16:23 16:23 16:23 WBC 18.7 H (3.8-10.6) k/uL RBC 5.06 (3.80-5.40) m/uL Hgb 15.7 D (11.4-16.0) gm/dL Hct 47.6 H (34.0-46.0) % MCV 94.0 (80.0-100.0) fL MCH 31.0 (25.0-35.0) pg MCHC 32.9 (31.0-37.0) g/dL RDW 13.5 (11.5-15.5) % Plt Count 214 (150-450) k/uL Neutrophils % 92 % Lymphocytes % 4 % Monocytes % 3 % Eosinophils % 1 % Basophils % 0 % Neutrophils # 17.1 H (1.3-7.7) k/uL Lymphocytes # 0.8 L (1.0-4.8) k/uL Monocytes # 0.6 (0-1.0) k/uL Eosinophils # 0.1 (0-0.7) k/uL Basophils # 0.0 (0-0.2) k/uL PT (9.0-12.0) sec INR (<1.2) APTT (22.0-30.0) sec D-Dimer (<0.60) mg/L FEU Sodium 136 L (137-145) mmol/L Potassium 3.8 (3.5-5.1) mmol/L Chloride 104 (98-107) mmol/L Carbon Dioxide 22 (22-30) mmol/L Anion Gap 10 mmol/L BUN 39 H (7-17) mg/dL Creatinine 0.90 (0.52-1.04) mg/dL Est GFR (CKD-EPI)AfAm 69 (>60 ml/min/1.73 sqM) Est GFR (CKD-EPI)NonAf 60 (>60 ml/min/1.73 sqM) Glucose 209 H (74-99) mg/dL Calcium 8.8 (8.4-10.2) mg/dL Total Bilirubin 0.5 (0.2-1.3) mg/dL AST 18 (14-36) U/L ALT 33 (9-52) U/L Alkaline Phosphatase 44 (38-126) U/L Total Creatine Kinase 50 (30-135) U/L CK-MB (CK-2) 1.6 (0.0-2.4) ng/mL CK-MB (CK-2) Rel Index 3.2 Troponin I 0.018 (0.000-0.034) ng/mL NT-Pro-B Natriuret Pep pg/mL Total Protein 5.3 L (6.3-8.2) g/dL Albumin 3.2 L (3.5-5.0) g/dL 05/30/18 05/30/18 Range/Units 16:23 16:23 WBC (3.8-10.6) k/uL RBC (3.80-5.40) m/uL Hgb (11.4-16.0) gm/dL Hct (34.0-46.0) % MCV (80.0-100.0) fL MCH (25.0-35.0) pg MCHC (31.0-37.0) g/dL RDW (11.5-15.5) % Plt Count (150-450) k/uL Neutrophils % % Lymphocytes % % Monocytes % % Eosinophils % % Basophils % % Neutrophils # (1.3-7.7) k/uL Lymphocytes # (1.0-4.8) k/uL Monocytes # (0-1.0) k/uL Eosinophils # (0-0.7) k/uL Basophils # (0-0.2) k/uL PT 11.4 (9.0-12.0) sec INR 1.2 H (<1.2) APTT 20.2 L (22.0-30.0) sec D-Dimer 4.43 H (<0.60) mg/L FEU Sodium (137-145) mmol/L Potassium (3.5-5.1) mmol/L Chloride (98-107) mmol/L Carbon Dioxide (22-30) mmol/L Anion Gap mmol/L BUN (7-17) mg/dL Creatinine (0.52-1.04) mg/dL Est GFR (CKD-EPI)AfAm (>60 ml/min/1.73 sqM) Est GFR (CKD-EPI)NonAf (>60 ml/min/1.73 sqM) Glucose (74-99) mg/dL Calcium (8.4-10.2) mg/dL Total Bilirubin (0.2-1.3) mg/dL AST (14-36) U/L ALT (9-52) U/L Alkaline Phosphatase (38-126) U/L Total Creatine Kinase (30-135) U/L CK-MB (CK-2) (0.0-2.4) ng/mL CK-MB (CK-2) Rel Index Troponin I (0.000-0.034) ng/mL NT-Pro-B Natriuret Pep 3360 pg/mL Total Protein (6.3-8.2) g/dL Albumin (3.5-5.0) g/dL Disposition Clinical Impression: Allergic reaction Disposition: HOME SELF-CARE Condition: Good Instructions: Chest Pain (ED), General Allergic Reaction (ED) Additional Instructions: Please return to the emergency department if you have any worsening symptoms such as recurrent chest pain or abdominal pain. Return if you have any fevers or any other worsening symptoms. Continue to take medications given to you from your admission to the hospital. Follow-up with primary care in 1-2 days. Is patient prescribed a controlled substance at d/c from ED?: No Referrals: Rosalino Melgar MD [Primary Care Provider] - 1-2 days Time of Disposition: 20:05
--- NOTE | 2018-05-30 19:31 | CT ---
EXAMINATION TYPE: CT chest angio for PE with contrast and with 3-D reconstruction renderings DATE OF EXAM: 05/30/2018 COMPARISON: None HISTORY: Chest pain, allergic reaction CT DLP: 388.2 mGycm Automated exposure control for dose reduction was used. CONTRAST: CT Chest for pulmonary embolism performed with with IV Contrast, patient injected with 100 mL of Isovue 370. 3-D reconstructions. FINDINGS: AIRWAYS: Unremarkable. LUNGS: The lungs are grossly clear, there is no concerning parenchymal mass or nodule identified. T here is no pleural effusion or pneumothorax. MEDIASTINUM: There is satisfactory enhancement of the pulmonary artery and its branches, there is no CT evidence for pulmonary embolism. There are no greater than 1 cm hilar or mediastinal lymph nodes. There is moderate marked cardiomegaly with panchamber enlargement. Left and right coronary calcifica tions are extensive. Post-CABG changes noted. No pericardial effusion is seen. OTHER: No additional significant abnormality is seen. IMPRESSION: 1. Negative for pulmonary embolism. 2. No acute radiographic process.
[2018-05-30 20:27] VITALS: BP 137/67; PULSE 73
== END 2018-05-30 20:27 | disposition home or self-care (01) ==
LOC: EC 15:30
DX: T78.1XXA Other adverse food reactions, not elsewhere classified, initial encounter (principal); I48.91 Unspecified atrial fibrillation; E78.5 Hyperlipidemia, unspecified; I11.0 Hypertensive heart disease with heart failure; I50.9 Heart failure, unspecified; I42.9 Cardiomyopathy, unspecified; Z95.810 Presence of automatic (implantable) cardiac defibrillator; Z90.49 Acquired absence of other specified parts of digestive tract; Z90.710 Acquired absence of both cervix and uterus; Z95.1 Presence of aortocoronary bypass graft; Z96.651 Presence of right artificial knee joint; Z96.611 Presence of right artificial shoulder joint; Z79.82 Long term (current) use of aspirin; Z79.899 Other long term (current) drug therapy; Z91.041 Radiographic dye allergy status; Z91.048 Other nonmedicinal substance allergy status
CPT/HCPCS: 36415; 93005; 85379; 83880; 80053; 82550; 82553; 84484; 85025; 85610; 85730; 71046; 71275; 99285; 96374; 96361; J2930; Q9967